=== PATIENT | female | born 1970 | race Caucasian/White ===

== ENCOUNTER → 2022-02-13 08:15 | Outpatient (CLI) | payer BC, SELFPAY ==
--- NOTE | ~2022-02-13 | XR_ITS ---
Cervical Spine: AP, lateral, open-mouth views Clinical History: Pain Findings: The normal lordotic curve is maintained. The vertebral bodies and posterior elements appea r intact. The intervertebral disc spaces are well maintained. Pre-vertebral soft tissues are unremar kable. Impression: No significant abnormality is seen. Reviewed, dictated and finalized at [facility]. [employer] Impression: No significant abnormality is seen.
--- NOTE | ~2022-02-13 | XR_ITS ---
Thoracic spine: Clinical Indication: Pain AP and lateral views were performed. No fracture is seen. There is normal alignment of the vertebrae. The intervertebral disc spaces appe ar normal. Paravertebral soft tissues appear normal. Impression: No significant abnormalities noted. Reviewed, dictated and finalized at [facility]. [employer] Impression: No significant abnormalities noted.
--- NOTE | ~2022-02-13 | CT_ITS ---
Noncontrast CT scan of the lumbar spine CLINICAL HISTORY: Lumbar radiculopathy TECHNIQUE: Axial noncontrast imaging of the lumbar spine was performed. Sagittal and coronal reformat zeferino images were reconstructed. Dose reduction technique was used on this scan by utilizing automated exposure control and iterative reconstruction technique. COMPARISON: 06/17/2010 FINDINGS: No fracture or subluxation seen in the lumbar spine. Osseous alignment is unchanged from pr ior exam. There is moderate to severe degenerative disc change at L5-S1. Remaining disc spaces are re latively well-preserved. At L1-L2, there is no disc bulge or herniation. No spinal canal stenosis or neural foraminal narrowin g. At L2-L3, there is no disc bulge or herniation. No spinal canal stenosis or neural foraminal narrowin g. At L3-L4, there is probable disc bulge and minimal ligamentum flavum hypertrophy. Possible minimal ce ntral canal stenosis/thecal sac compression. There is mild left neural foraminal narrowing. At L4-L5, there is minimal disc bulge. There is minimal facet arthropathy in the right side. No abad spinal canal stenosis. There is moderate bilateral neural foraminal narrowing. At L5-S1, there is no significant disc bulge or herniation. No spinal canal stenosis. There is modera te right neural foraminal narrowing and mild left neural foraminal narrowing. Paravertebral soft tissues are unremarkable. IMPRESSION: Mild degenerative spondylosis, as detailed above. Reviewed, dictated and finalized at [facility]. ENT REPRESENTATIVE
== END ==
PROVIDERS: PCP Physician Assistant Medical; Visit Provider Physician Assistant Medical
DX: M47.27 Other spondylosis with radiculopathy, lumbosacral region (principal); R20.2 Paresthesia of skin; M54.9 Dorsalgia, unspecified; M54.2 Cervicalgia
CPT/HCPCS: 72050; 72072; 72131

== ENCOUNTER 2023-05-27 10:14 | Outpatient (CLI) | payer BC, SELFPAY ==
--- NOTE | ~2023-05-27 | CT_ITS ---
EXAMINATION: CT lumbar spine wo con DATE: 05/27/2023 10:39 INDICATION: Lumbago with sciatica. TECHNIQUE: Computed tomography (CT) of the lumbar spine was performed without intravenous contrast. A utomated exposure control and iterative reconstruction technique were employed. The dose-length produ ct was 598.50 mGy-cm. COMPARISON: None FINDINGS: There is 12 degrees dextroscoliosis of lumbar spine. Vertebral body heights are normal. The re is mildly decreased disc height at L2-L3, moderately decreased disc height at L3-L4, and severely decreased disc height at L4-L5 and L5-S1. The following disc levels are specifically discussed: L1-L2: The disc does not extend beyond the endplate margin. There is severe right and mild left facet joint osteoarthritis. There is no neural foraminal stenosis. There is no central canal stenosis. L2-L3: The disc is bulging. There is severe right and mild left facet joint osteoarthritis. There is mild bilateral neural foraminal stenosis. There is mild central canal stenosis. L3-L4: The disc is bulging. There is severe bilateral facet joint osteoarthritis. There is mild bilat eral neural foraminal stenosis. There is mild central canal stenosis. L4-L5: The disc is bulging. There is severe right and mild left facet joint osteoarthritis. There is moderate right and mild left neural foraminal stenosis. There is mild central canal stenosis. L5-S1: The disc is bulging. There is moderate bilateral facet joint osteoarthritis. There is moderate right and mild left neural foraminal stenosis. There is mild central canal stenosis. IMPRESSION: 1. Severe lumbar spondylosis. 2. Lumbar dextroscoliosis. Reviewed, dictated and finalized at [facility].
== END 2023-05-27 10:15 ==
PROVIDERS: PCP Physician Assistant Medical; Visit Provider Family Medicine
DX: M43.06 Spondylolysis, lumbar region (principal); M41.86 Other forms of scoliosis, lumbar region; M54.40 Lumbago with sciatica, unspecified side
CPT/HCPCS: 72131